=== PATIENT | female | born 1960 | race Caucasian/White ===

== ENCOUNTER → 2019-11-20 | Outpatient (CLI) | payer MEDICARE ==
[~2019-11-20] MED LIST: AC325T PO; CIME800T63 PO; DESV50TA PO; EST1.25T PO; HYDR-707 PO; LISI20TA PO; METO100T2 PO; ZLP5T PO
--- NOTE | 2019-11-20 12:34 | Diagnostic Imaging Report ---
INDICATION: Pain. 3 views left foot were obtained. FINDINGS: The alignment is normal. There are mild degenerative changes. There is no fracture or dislocation. Soft tissues are unremarkable. IMPRESSION: Mild degenerative changes otherwise unremarkable. Dictated by: Dictated on workstation # [id number]
== END ==
LOC: RAD FS 11:58
PROVIDERS: ATTEND Nurse Practitioner
DX: M19.072 Primary osteoarthritis, left ankle and foot (principal)
CPT/HCPCS: 73630

== ENCOUNTER → 2019-11-25 | Outpatient (CLI) | payer MEDICARE ==
--- NOTE | 2019-11-25 11:15 | Diagnostic Imaging Report ---
Exam: Left lower extremity arterial Doppler ultrasound. Date: November 25, 2019. Indication: 59-year-old female, left foot pain and paresthesias. Comparison: Left foot radiographs November 20, 2019. Findings: Peak systolic velocity in the left common femoral artery measures 108 cm/s with normal triphasic waveform. Peak systolic velocity in the left deep femoral artery measures 65 cm/s. Peak systolic velocity in left proximal superficial femoral artery measures 104 cm/s, 103 cm/s in the mid left superficial femoral artery, and 106 cm/s distally. Peak systolic velocity in the left popliteal artery measures 79 cm/s. Peak systolic velocity in the left posterior tibial artery distally measures 73 cm/s. Peak systolic velocity in the left dorsalis pedis artery measures 31 cm/s. There is loss of normal triphasic waveform distal to the popliteal artery. Peak systolic velocity in the left anterior tibial artery in its mid segment measures 35 cm/s. Impression: 1. Patent imaged left lower extremity arterial vasculature. 2. Loss of normal triphasic waveforms distal to the popliteal artery. Dictated by: Dictated on workstation # [id number]
== END ==
LOC: RAD 09:34
PROVIDERS: ATTEND Nurse Practitioner
DX: M79.672 Pain in left foot (principal); L81.9 Disorder of pigmentation, unspecified; R20.2 Paresthesia of skin
CPT/HCPCS: 93926

== ENCOUNTER → 2020-01-06 | Outpatient (CLI) | payer MEDICARE ==
--- NOTE | 2020-01-08 10:54 | Diagnostic Imaging Report ---
INDICATION: 59-year-old postmenopausal female. COMPARISON: None FINDINGS: AP Spine L1-L4: [BMD (g/cm2): 1.069] [T-Score: -1.1] [Z-Score: 0.1] [BMD Previous: NA] [BMD % Change: NA] LT Hip Neck: [BMD (g/cm2): 0.974] [T-Score: -0.5] [Z-Score: 0.8] LT Hip Total: [BMD (g/cm2):1.028] [T-Score:0.2] [Z-Score: 1.1] [BMD Previous: NA] [BMD % Change: NA] RT Hip Neck: [BMD (g/cm2):0.887] [T-Score:-1.1] [Z-Score:0.1] RT Hip Total: [BMD (g/cm2):0.981] [T-score:-0.2] [Z-Score:0.7] [BMD Previous:NA] [BMD % Change:NA] *Indicates significant change from prior examination based on 95% confidence level. World Health Organization criteria for BMD interpretation classify patients as Normal (T-score at or above -1.0), Osteopenic (T-score between -1.0 and -2.5) or Osteoporotic (T-score at or below -2.5). LIMITATIONS AND MODIFICATION: None. IMPRESSION: 1. Osteopenia (Low bone mass). 2. Baseline examination. 3. See below National Osteoporosis Foundation guidelines on when to potentially initiate pharmacologic therapy. Based on the National Osteoporosis Foundation Guidelines, pharmacologic treatment should be initiated in any of the following, unless clinical conditions suggest otherwise: * Any patient with prior fragility fracture of the hip or vertebrae. A spine fracture indicates 5X risk for subsequent spine fracture and 2X risk for subsequent hip fracture. * Osteoporosis (T-score <-2.5). * Postmenopausal women and men age 50 and older with low bone mass/osteopenia (T-score between -1.0 and -2.5) by DXA and 10-year major osteoporotic fracture greater than 20% or a 10-year probability of hip fracture greater than 3%. These fracture risks are supplied above in the FRAX score, if applicable. * Clinician judgement and/or patient preferences may indicate treatment for people with 10-year fracture probabilities above or below these levels. Dictated by: Dictated on workstation # [id number]
== END ==
LOC: RAD 09:33
PROVIDERS: ATTEND Nurse Practitioner
DX: M85.89 Other specified disorders of bone density and structure, multiple sites (principal); Z78.0 Asymptomatic menopausal state
CPT/HCPCS: 77080

== ENCOUNTER 2021-04-12 11:42 | Emergency (ER) | payer MEDICARE ==
[~2021-04-12] VITALS: Ht 162 cm; Wt 70.0 kg
[2021-04-12] MEDS ORDERED: KETOROLAC 60 MG/2 ML VIAL IM ONE (12:15)
--- NOTE | 2021-04-12 12:24 | Diagnostic Imaging Report ---
CHEST 1 VIEW AP/PA ONLY Indication: Shortness of air Comparison: None available. Findings: There is an approximately 4 cm mass in the right midlung with obtuse margins to pleura suggesting this is within the pleural space. Left basilar linear atelectasis. No pleural effusion or pneumothorax. Normal heart size and mediastinal contours. Impression: 1. Right-sided mass may be within the pleural space and a CT chest with IV contrast is recommended for further assessment. Dictated by: Dictated on workstation # [id number]
--- NOTE | 2021-04-12 12:44 | ED Cough/URI ---
General Chief Complaint: Cough/Cold/Flu Symptoms Stated Complaint: RASH,LOW O2; COVID+ Nursing Triage Note: REPORTS BODY ACHES AND SHE FEELS SHORT OF BREATH. SHE REPORTS SHE HAD A RASH THIS AM ON BOTH WRISTS. Source: patient Exam Limitations: no limitations History of Present Illness Date Seen by Provider: Apr 12, 2021 Time Seen by Provider: 12:00 Initial Comments Patient is a 60-year-old female with history of fibromyalgia who presents with with body aches, shortness of breath and cough symptoms started earlier today. Patient initially rash on her palms and back which since resolved with hydrocortisone cream. No fever chills, nausea vomiting or sweats. Reports chills body aches and dyspnea. No fever sore throat, chest pain, shortness of breath. No abdominal pain. No vomiting, no vomiting or diarrhea. No dysuria. No other acute symptoms or complaints. Patient has received the Covid vaccination. Timing/Duration: just prior to arrival Severity/Quality: mild Prior Episodes/Possible Cause: other Modifying Factors: Improves With Other Associated Symptoms: cough, nasal congestion, nasal drainage, other Allergies and Home Medications Allergies Coded Allergies: No Known Drug Allergies (Unverified , 08/07/13) Home Medications Acetaminophen 325 Mg Tab, 650 MG PO Q6H PRN for PAIN, (Reported) Cimetidine 800 Mg Tablet, 200 MG PO BID, (Reported) Desvenlafaxine Succinate 50 Mg Tab.sr.24h, 50 MG PO DAILY, (Reported) Estrogens Conjugated 1.25 Mg Tab, 1.25 MG PO DAILY, (Reported) Hydrocodone Bit/Acetaminophen 1 Each Tablet, 1 EACH PO Q 4 - 6 HR PRN PRN for PAIN, (Reported) Lisinopril 20 Mg Tablet, 20 MG PO DAILY, (Reported) Metoprolol Tartrate 100 Mg Tablet, 100 MG PO DAILY, (Reported) Zolpidem Tartrate 5 Mg Tab, 2.5 MG PO HS, (Reported) Patient Home Medication List Home Medication List Reviewed: Yes Review of Systems Review of Systems Constitutional: see HPI EENTM: see HPI Cardiovascular: see HPI Gastrointestinal: see HPI Genitourinary: see HPI Musculoskeletal: see HPI Skin: see HPI Psychiatric/Neurological: See HPI Hematologic/Lymphatic: See HPI Past Rrtbjnr-Pmmvoq-Xplxil Hx Patient Social History Tobacco Use?: No Use of E-Cig and/or Vaping dev: Yes Substance use?: No Alcohol Use?: Yes Alcohol type: Other Alcohol Frequency: Once in a while Pt feels they are or have been: No Immunizations Up To Date First/Initial COVID19 Vaccinat: OCTOBER 2020 Second COVID19 Vaccination Get: NOVEMBER 2020 COVID19 Vaccine Head Well Puller: ADA Physical Exam Vital Signs - First Documented 04/12/21 11:48 Temp 37.7 Pulse 96 Resp 18 B/P (MAP) 121/93 (102) Pulse Ox 94 O2 Delivery Room Air Capillary Refill : Less Than 3 Seconds Height: '" Weight: 158lbs. oz. kg; 26.00 BMI Method: General Appearance: WD/WN, no apparent distress Eyes: Bilateral Eye Normal Inspection, Bilateral Eye PERRL, Bilateral Eye EOMI HEENT: normal ENT inspection, TMs normal, pharynx normal Neck: full range of motion, supple Respiratory: chest non-tender, lungs clear Cardiovascular: normal peripheral pulses, regular rate, rhythm Gastrointestinal: non tender, soft Extremities: normal range of motion, non-tender Neurologic/Psychiatric: alert, oriented x 3 Skin: normal color Focused Exam Sepsis Stage: Ruled Out Progress/Results/Core Measures Suspected Sepsis SIRS Temperature: Pulse: 96 Respiratory Rate: 18 Blood Pressure 121 /93 Mean: 102 Results/Orders My Orders Orders - MARK SAWYER DO Chest 1 View Ap/Pa Only (04/12/21 11:56) Coronavirus Sars-Cov-2 So 2018 (04/12/21 11:56) Ketorolac Injection (Toradol Injection) (04/12/21 12:15) Cbc With Automated Diff (04/12/21 12:41) Comprehensive Metabolic Panel (04/12/21 12:41) Ct Chest W (04/12/21 12:41) Cbc With Automated Diff (04/12/21 12:54) Comprehensive Metabolic Panel (04/12/21 12:54) Medications Given in ED Current Medications Medications Dose Ordered Sig/Jasen Route Start Time Stop Time Status Last Admin Dose Admin Ketorolac Tromethamine 60 mg ONCE ONCE IM 04/12/21 12:15 04/12/21 12:16 DC 04/12/21 12:11 60 MG Vital Signs/I&O 04/12/21 11:48 Temp 37.7 Pulse 96 Resp 18 B/P (MAP) 121/93 (102) Pulse Ox 94 O2 Delivery Room Air Capillary Refill : Less Than 3 Seconds Blood Pressure Mean: 102 Departure Communication (Admissions) Chest x-ray: Right sided mass known to be lipoma from previous exam. Patient with myalgias with URI symptoms. No respiratory compromise or wheezing.'s Toradol given. Symptoms consistent with possible Covid versus nonspecific URI. Recommendation watchful waiting for self quarantine with PCP follow-up. Return precautions reviewed. Patient verbalizes understanding agreement discharge instructions prior to departure. Impression Primary Impression: Upper respiratory infection Disposition: HOME, SELF-CARE Condition: Stable Departure-Patient Inst. Decision time for Depature: 13:09 Referrals: ELAINE PATEL MD (PCP/Family) Primary Care Physician Patient Instructions: Viral Syndrome (DC) Add. Discharge Instructions: You were evaluated in this ER for an upper respiratory tract symptoms with body aches. Your symptoms are most consistent with Covid or another viral respiratory illness. Please self quarantine, use albuterol inhaler take prednisone and Z-Iker pending Covid test results. Follow-up with your PCP for reevaluation. Return to the ED if new or worsening symptoms. All discharge instructions reviewed with patient and/or family. Voiced understanding. Scripts Albuterol Sulfate (Proventil Hfa) 6.7 Gm Hfa.aer.ad 6.7 GM INH QID, #1 GM Prov: MARK SAWYER DO 04/12/21 Azithromycin (Zithromax) 250 Mg Tablet 250 MG PO UD, #6 TAB TAKE 2 TABLETS TODAY, THEN TAKE 1 TABLET DAILY FOR 4 MORE DAYS Prov: MARK SAWYER DO 04/12/21 Prednisone (Prednisone) 20 Mg Tab 40 MG PO DAILY, #6 TAB 0 Refills Prov: MARK SAWYER DO 04/12/21 MARK SAWYER DO Apr 12, 2021 12:44
[2021-04-12] MEDS ORDERED: PRD20T PO (13:11)
[2021-04-12] MEDS ORDERED: AZIT250T PO (13:11)
[2021-04-12] MEDS ORDERED: ALBU6.7H8 INH (13:11)
[2021-04-12 13:13] VITALS: BP 116/82
--- OUTSIDE RECORDS SUMMARY | 2021-04-12 18:38 | XMS REPORT | Clinical Summary ---
Author Author [facility] Organization [facility] Address Unknown Phone Unavailable Care Team Providers Care Surgical Coder Name Role Phone Viktoriya Pardo MD Unavailable Hayder Madison MD PCP Brittney Boyd Unavailable Unavailable Levar Lyon MD Unavailable Patience Clarke RN Unavailable Unavailable Source Comments Some departments are not documenting in the electronic medical record. If you d o not see the information that you expected, contact Release of Information in [facility] Information Management department at [phone] for further assistan ce in locating additional records.[facility] Allergies No Known Active Allergies Medications End Date Status Medication Sig Dispensed Refills Start Date Active estrogens, conjugated Take 1.25 mg 0 (PREMARIN) 1.25 mg tablet by mouth daily. Active Desvenlafaxine (PRISTIQ) Take by 0 100 mg Tb24 mouth daily. Active lisinopril/hydrochlorothi Take by 0 azide (ZESTORETIC) 20/25 mouth daily. tablet Active turmeric root extract 500 Take 2 Caps 0 mg cap by mouth daily. Active GINKGO BILOBA (GINKOBA Take 1 Tab by 0 PO) mouth twice daily. Active ERGOCALCIFEROL (VITAMIN Take 1 Tab by 0 D2) (VITAMIN D PO) mouth twice daily. Active cyanocobalamin(DIL) Inject to 0 (VITAMIN B-12, RUBRAMIN) area(s) as 100 mcg/mL directed. Patient takes injection once every six weeks Active traMADol (ULTRAM) 50 mg Take 50 mg by 0 tablet mouth every 6 hours as needed for Pain. Active HYDROcodone-acetaminophen Take 1 Tab by 0 (+) (LORTAB, NORCO) mouth every 6 10-325 mg tablet hours as needed for Pain. Active Problems No known active problems Surgical History Surgery Date Site/Laterality Comments HX HYSTERECTOMY 1985 total abdominal HIATAL HERNIA REPAIR 2009 HX CHOLECYSTECTOMY 2013 Medical History Medical History Date Comments Acid reflux Essential hypertension Hyperlipemia Family History Medical History Relation Name Comments Cancer-Prostate Father Heart Disease Maternal Grandmother Heart Disease Paternal Grandfather Heart Disease Paternal Grandmother Stroke Paternal Grandmother Relation Name Status Comments Brother Alive Daughter Alive Father Maternal Grandfather Maternal Grandmother Mother Alive Paternal Grandfather Paternal Grandmother Sister Alive Son Alive Social History Date Tobacco Use Types Packs/Day Years Used Former Smoker Cigarettes 2 25 Comments Alcohol Use Standard Drinks/Week Yes 1 (1 standard drink = 0.6 o z pure alcohol) Sex Assigned at Date Recorded Not on file Last Filed Vital Signs Reading Time Taken Comments Vital Sign 131/72 12/22/2014 1:27 PM CDT Blood Pressure 72 12/22/2014 1:27 PM CDT Pulse 36.6 C (97.9 F) 12/16/2014 2:41 PM CDT Temperature 16 12/16/2014 2:41 PM CDT Respiratory Rate 99% 12/22/2014 1:27 PM CDT Oxygen Saturation - - Inhaled Oxygen Concentration 74.9 kg (165 lb 3.2 oz) 12/16/2014 2:41 PM CDT Weight 162.6 cm (5' 4") 12/16/2014 2:41 PM CDT Height 28.36 12/16/2014 2:41 PM CDT Body Mass Index Plan of Treatment Health Maintenance Due Date Last Done Comments MEDICARE ANNUAL WELLNESS 1958 VISIT HIV SCREENING 1973 DTAP/TDAP VACCINES (1 - 1976 Tdap) HEPATITIS C SCREENING 1976 PHYSICAL (COMPREHENSIVE) 1976 EXAM CERVICAL CANCER SCREENING 11/15/1979 BREAST CANCER SCREENING 1998 SHINGLES RECOMBINANT 2008 VACCINE (1 of 2) INFLUENZA VACCINE 05/27/2021 COLORECTAL CANCER 12/31/2024 12/31/2014 SCREENING Results Not on filefrom Last 3 Months Insurance Type Payer Benefit Subscriber ID Effective Phone Address Plan / Dates Group Medicare MEDICARE MEDICARE [id number] PART A AND resent B [phone] Advance Directives Patient Principal Network Engineer Explanation Type Date Recorded Advance 12/22/2014 12:46 PM Directive/DPOA
--- OUTSIDE RECORDS SUMMARY | 2021-04-12 18:38 | XMS REPORT | Clinical Summary ---
Author Author [facility] Organization [facility] Address Unknown Phone Unavailable Care Team Providers Care Greenhouse Worker Name Role Phone PCP Unavailable Allergies Not on File Medications Not on file Active Problems Not on file Social History Date Tobacco Use Types Packs/Day Years Used Never Assessed Sex Assigned at Date Recorded Not on file Last Filed Vital Signs Not on file Plan of Treatment Not on file Results Not on filefrom Last 3 Months
== END 2021-04-12 13:17 | disposition home or self-care (01) ==
LOC: EDUNIT# 11:42 → ER FS 11:43
DX: J06.9 Acute upper respiratory infection, unspecified (principal); Z20.822 Contact with and (suspected) exposure to COVID-19
CPT/HCPCS: 71045; 87636

== ENCOUNTER 2023-04-02 14:41 | Emergency (ER) | payer MEDICARE ==
[~2023-04-02 14:41] MED LIST changes: +ALBU6.7H13 INH; +AZIT250T PO; +PRD20T PO
[2023-04-02] MEDS ORDERED: morphine INJ 10 MG/ML 1ML (SYR OR VIAL) IM STA (15:09)
--- NOTE | 2023-04-02 15:14 | ED Fall/Injury ---
General Chief Complaint: Trauma-Non Activation Stated Complaint: FALL Source: patient Exam Limitations: no limitations History of Present Illness Date Seen by Provider: Apr 02, 2023 Time Seen by Provider: 15:01 Initial Comments 62-year-old female presents to the emergency department today after a fall from her lawnmower. She was bending over to get something off of the mower deck and fell to the ground striking her head and her neck. She did not lose consciou sness. She did hit her face on the mower deck and has pain in her neck and upper back. She denies any upper or lower extremity pain, chest or abdominal pain. She does not know when her last tetanus shot was. All other systems reviewed and negative except documented per HPI. Voice recognition software was used to help create this chart Allergies and Home Medications Allergies Coded Allergies: No Known Drug Allergies (Unverified , 08/07/13) Patient Home Medication List Home Medication List Reviewed: Yes Acetaminophen (Tylenol Tablet) 325 Mg Tab, 650 MG PO Q6H PRN for PAIN, (Reported) Entered as Reported by: BINA VANG on 08/07/13 0935 Albuterol Sulfate (Proventil Hfa) 6.7 Gm Hfa.aer.ad, 6.7 GM INH QID Prescribed by: MARK SAWYER on 04/12/21 1311 Azithromycin (Zithromax) 250 Mg Tablet, 250 MG PO UD Prescribed by: MARK SAWYER on 04/12/21 1311 Cimetidine (Tagamet) 800 Mg Tablet, 200 MG PO BID, (Reported) Entered as Reported by: BINA VANG on 08/07/13 0935 Desvenlafaxine Succinate (Pristiq) 50 Mg Tab.sr.24h, 50 MG PO DAILY, (Reported) Entered as Reported by: BINA VANG on 08/07/13 0935 Estrogens Conjugated (Premarin Tab) 1.25 Mg Tab, 1.25 MG PO DAILY, (Reported) Entered as Reported by: BINA VANG on 08/07/13 0918 Hydrocodone Bit/Acetaminophen (Lortab 5-500 Tablet) 1 Each Tablet, 1 EACH PO Q 4 - 6 HR PRN PRN for PAIN, (Reported) Entered as Reported by: BINA VANG on 08/07/13 0935 Lisinopril (Prinivil) 20 Mg Tablet, 20 MG PO DAILY, (Reported) Entered as Reported by: BINA VANG on 08/07/13 0934 Metoprolol Tartrate (Metoprolol Tartrate 100 Mg) 100 Mg Tablet, 100 MG PO DAILY, (Reported) Entered as Reported by: BINA VANG on 08/07/13 0924 Prednisone (Prednisone) 20 Mg Tab, 40 MG PO DAILY Prescribed by: MARK SAWYER on 04/12/21 1311 Zolpidem Tartrate (Ambien 5 Mg) 5 Mg Tab, 2.5 MG PO HS, (Reported) Entered as Reported by: BINA VANG on 08/07/13 0935 Review of Systems Review of Systems Constitutional: see HPI Past Yvdrxjk-Txckhr-Dvfjpv Hx Patient Social History Tobacco Use?: No Use of E-Cig and/or Vaping dev: Yes E-Cig or Vaping type used: Nicotine Substance use?: No Alcohol Use?: No Physical Exam Vital Signs Vital Signs - First Documented 04/02/23 15:04 Temp 36.0 Pulse 83 Resp 16 B/P (MAP) 137/91 (106) Pulse Ox 97 O2 Delivery Room Air Capillary Refill : Height, Weight, BMI Height: '" Weight: 158lbs. oz. kg; 26.00 BMI Method: General Appearance: WD/WN, mild distress (Appears to be in pain) HEENT: normal ENT inspection, other (Abrasion to the anterior forehead, superfi cial) Neck: supple, other (Tenderness palpation midline cervical and thoracic spine. There is paraspinal tenderness with muscle spasm surrounding as well to the level of the mid thoracic spine. No lumbar tenderness.) Cardiovascular: regular rate, rhythm, no murmur Respiratory: chest non-tender, lungs clear, normal breath sounds, no respiratory distress, no accessory muscle use Gastrointestinal: normal bowel sounds, non tender, soft, no organomegaly Back: normal inspection, vertebral tenderness (Tenderness palpation through the mid thoracic spine. No lumbar tenderness. No step-offs or deformity.) Extremities: other (Small abrasion to the left mid forearm. No bony tenderness throughout bilateral upper or lower extremities. There are small abrasion to the left anterior knee. 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, no motor/sensory deficits, alert, normal mood/affect, oriented x 3 Skin: normal color, warm/dry, other (Scattered abrasions as described elsewhere) Progress/Results/Core Measures Results/Orders My Orders Orders - PUJA CASTILLO DO Ct Head Wo (04/02/23 15:09) Ct Cervical Spine Wo (04/02/23 15:09) Ct Thoracic Spine Wo (04/02/23 15:09) Morphine Injection (Morphine Injection (04/02/23 15:09) Dipht/Pertuss(Acell)/Tet Adult (Dipht/Pe (04/02/23 15:15) Medications Given in ED Current Medications Medications Dose Ordered Sig/Jasen Route Start Time Stop Time Status Last Admin Dose Admin Diphtheria/ Tetanus/Acell Pertussis 0.5 ml ONCE ONCE IM 04/02/23 15:15 04/02/23 15:16 DC 04/02/23 15:21 0.5 ML Vital Signs/I&O 04/02/23 15:04 Temp 36.0 Pulse 83 Resp 16 B/P (MAP) 137/91 (106) Pulse Ox 97 O2 Delivery Room Air Departure Communication (Admissions) Patient is hemodynamically stable. Imaged all areas of pain. CT scan of her head neck and thoracic spine with images reviewed by me. No obvious acute abnormality. Radiology interpretations are in agreement with this. She is neurovascular and sensory intact. Tetanus was updated. Pain control with morphine. Discharged with hydrocodone Impression Primary Impression: Fall Qualified Codes: W19.XXXA - Unspecified fall, initial encounter Additional Impressions: Closed head injury Qualified Codes: S09.90XA - Unspecified injury of head, initial encounter Neck pain Thoracic back pain Qualified Codes: M54.6 - Pain in thoracic spine Disposition: 01 HOME, SELF-CARE Condition: Stable Departure-Patient Inst. Referrals: SELF,ELAINE COPELAND (PCP/Family) Primary Care Physician Patient Instructions: Neck Pain ED Add. Discharge Instructions: Take the pain medication as prescribed as needed. Increase your fluids at home and rest. Continue your home pain medication. Return to the emergency department for any severe concerns. Follow-up with her primary doctor for any nonemergent needs All discharge instructions reviewed with patient and/or family. Voiced understanding. Scripts Hydrocodone/Acetaminophen (Hydrocodone-Acetamin 5-325 mg) 5 Mg-325 Mg Tablet 1 TAB PO Q4H PRN for PAIN-MODERATE (5-7) for 3 Days, #2 TAB Prov: PUJA CASTILLO DO 04/02/23 PUJA CASTILLO DO Apr 02, 2023 15:14
[2023-04-02] MEDS ORDERED: Tetanus/Diphtheria/Pertussis (Acell) ADULT Vaccine 0.5 ML IM ONE (15:15)
--- NOTE | 2023-04-02 15:50 | Diagnostic Imaging Report ---
PROCEDURE: CT head without contrast. TECHNIQUE: Multiple contiguous axial images were obtained through the brain without the use of intravenous contrast. Auto Exposure Controls were utilized during the CT exam to meet ALARA standards for radiation dose reduction. INDICATION: Fall with head injury. CT HEAD: CT images of the head were obtained. FINDINGS: Ventricles and sulci are within normal limits for size. There is no intracranial hemorrhage identified. There is no abnormal mass effect or shift of midline structures. There is contusion involving the right forehead scalp however no underlying fracture is identified and there is no paranasal sinus air-fluid level. IMPRESSION: Right forehead contusion without evidence of acute intracranial abnormality. Dictated by: Dictated on workstation # [id number]
--- NOTE | 2023-04-02 15:58 | Diagnostic Imaging Report ---
PROCEDURE: CT cervical spine without contrast. TECHNIQUE: Multiple contiguous axial images were obtained through the cervical spine without the use of intravenous contrast. Sagittal and coronal reformations were then performed. Auto Exposure Controls were utilized during the CT exam to meet ALARA standards for radiation dose reduction. INDICATION: Neck pain status post fall. COMPARISON: None. FINDINGS: Evaluation of the static alignment shows slight grade 1 anterolisthesis at C3-C4. There is no evidence of jumped facets. Vertebral body heights are maintained. There is no acute fracture. No bony fragments are seen within the spinal canal. There are moderate multilevel degenerative changes consisting of intervertebral disc height loss with anterior and posterior endplate osteophyte formations. There is also multilevel facet arthropathy. Pre and paravertebral soft tissue structures are unremarkable. Included portions of the lung apices are clear. IMPRESSION: 1. No acute fracture or dislocation of the cervical spine. Dictated by: Dictated on workstation # [id number]
--- NOTE | 2023-04-02 16:04 | Diagnostic Imaging Report ---
PROCEDURE: CT thoracic spine without contrast. TECHNIQUE: Multiple axial computerized tomography images were obtained from the base of the thoracic spine to the vertex without intravenous contrast. Auto Exposure Controls were utilized during the CT exam to meet ALARA standards for radiation dose reduction. INDICATION: Back pain status post fall. COMPARISON: None. FINDINGS: Static alignment of the thoracic spine is maintained. There is no significant shaila or retrolisthesis. There is no evidence of jumped facets. Vertebral body heights are preserved. There is no acute fracture. No bony fragments are seen within the spinal canal. Mild multilevel degenerative changes are noted. Pre and paravertebral soft tissue structures are unremarkable. Included portions of the lungs are clear. IMPRESSION: 1. No acute fracture or dislocation of the thoracic spine. Dictated by: Dictated on workstation # [id number]
[2023-04-02] MEDS ORDERED: ACHD5005 PO (16:17)
[2023-04-02 16:20] VITALS: BP 137/91
== END 2023-04-02 16:21 | disposition home or self-care (01) ==
LOC: EDUNIT# 14:41 → ER FS 14:42
DX: S09.90XA Unspecified injury of head, initial encounter (principal); S81.011A Laceration without foreign body, right knee, initial encounter; S00.81XA Abrasion of other part of head, initial encounter; S50.812A Abrasion of left forearm, initial encounter; S80.212A Abrasion, left knee, initial encounter; M62.830 Muscle spasm of back; F17.290 Nicotine dependence, other tobacco product, uncomplicated; Z23 Encounter for immunization; W17.89XA Other fall from one level to another, initial encounter
CPT/HCPCS: 70450; 72125; 72128; 90715